=== PATIENT | female | born 1995 | race Caucasian/White ===

== ENCOUNTER 2017-01-28 05:15 | Emergency (ER) | payer OTHER ==
[~2017-01-28] VITALS: Ht 177.8 cm; Wt 143.3 kg
[2017-01-28 05:21] VITALS: BP 119/64
--- NOTE | 2017-01-28 05:24 | ED.ADGEN ---
Adult General Chief Complaint Chief Complaint " I was at home.. and woke up... a bug crawled into my right ear.. I can feel him crawling..." HPI HPI Patient is a 21 year old female who presents with above hx and complaint s of bug in right ear. Patient does appear to have a small cockroach in right ear. Ear irrigated with Sensorcaine and lidocaine. Was able to manually remove insect with a forceps . Pt. tolerated procedure well. Pt. normally healthy. No other complaint.s Review of Systems Review of Systems Constitutional: Denies fever or chills [] Eyes: Denies change in visual acuity, redness, or eye pain [] HENT: Denies nasal congestion or sore throat [] Complaints bug in ear. Respiratory: Denies cough or shortness of breath [] Cardiovascular: No additional information not addressed in HPI [] GI: Denies abdominal pain, nausea, vomiting, bloody stools or diarrhea [] : Denies dysuria or hematuria [] Musculoskeletal: Denies back pain or joint pain [] Integument: Denies rash or skin lesions [] Neurologic: Denies headache, focal weakness or sensory changes [] Endocrine: Denies polyuria or polydipsia [] Family History Family History Non-contributory Current Medications Current Medications See Nursing for home meds. Allergies Allergies NKDA Physical Exam Physical Exam Constitutional: Well developed, well nourished, no acute distress, non-toxic appearance. [] HENT: Normocephalic, atraumatic, bilateral external ears normal, oropharynx moist, no oral exudates, nose normal. [] Small cockroach in Rt.ear. Eyes: PERRLA, EOMI, conjunctiva normal, no discharge. [] Neck: Normal range of motion, no tenderness, supple, no stridor. [] Cardiovascular:Heart rate regular rhythm, no murmur [] Lungs & Thorax: Bilateral breath sounds clear to auscultation [] Abdomen: Bowel sounds normal, soft, no tenderness, no masses, no pulsatile masses. [] Obese. Skin: Warm, dry, no erythema, no rash. [] Back: No tenderness, no CVA tenderness. [] Extremities: No tenderness, no cyanosis, no clubbing, ROM intact, no edema. [] Neurologic: Alert and oriented X 3, normal motor function, normal sensory function, no focal deficits noted. [] Psychologic: Affect normal, judgement normal, mood normal. [] Current Patient Data Vital Signs Vital Signs Date Time Temp Pulse Resp B/P Pulse Ox O2 Delivery O2 Flow Rate FiO2 01/28/17 05:21 97.8 EKG EKG [] Radiology/Procedures Radiology/Procedures [] Course & Med Decision Making Course & Med Decision Making Pertinent Labs and Imaging studies reviewed. (See chart for details). Procedure note: - See HPI Follow up with primary. Return if any concerns. Pr [] Final Impression Final Impression 1. Cockroach Rt. Ear[] Problems: Dragon Disclaimer Dragon Disclaimer This electronic medical record was generated, in whole or in part, using a voice recognition dictation system. NICKOLAS ALVARES MD Jan 28, 2017 05:23
== END 2017-01-28 05:28 | disposition home or self-care (01) ==
LOC: ER 05:15
DX: T16.1XXA Foreign body in right ear, initial encounter (principal); X58.XXXA Exposure to other specified factors, initial encounter; Y93.89 Activity, other specified; Y99.8 Other external cause status; Y92.89 Other specified places as the place of occurrence of the external cause
CPT/HCPCS: 69200; 99284-25

== ENCOUNTER → 2019-04-18 | Outpatient (CLI) | payer OTHER ==
--- NOTE | 2019-04-18 15:31 | RAD ---
EXAM: 1. Chest 2 views. 2. Lumbar spine 3 views. HISTORY: Cough. Low back pain. COMPARISON: None. FINDINGS: Frontal and lateral views of the chest are obtained. There are no confluent infiltrates. There is no pneumothorax or pleural effusion. The heart is not enlarged. The alignment of the lumbar spine is normal. Vertebral body and intervertebral disc heights are maintained, and no fractures are identified. IMPRESSION: 1. No confluent infiltrates. 2. No lumbar fracture or malalignment. Electronically signed by: Can Adam MD (04/18/2019 3:28 PM) [facility]
== END | disposition home or self-care (01) ==
LOC: PMG 15:04
PROVIDERS: ATTEND Registered Nurse
DX: M54.5 Low back pain (principal); R07.9 Chest pain, unspecified; R05 Cough
CPT/HCPCS: 71046; 72100

== ENCOUNTER → 2019-07-23 | Outpatient (CLI) | payer OTHER ==
--- NOTE | 2019-07-23 15:24 | RAD ---
PROCEDURE: CHEST PA LATERAL CLINICAL INDICATION: TB screening for work. No symptoms. COMPARISON: None FINDINGS: No pneumothorax identified. Cardiac and mediastinal contours unremarkable. No pulmonary consolidation or acute airspace disease. No acute osseous abnormalities identified. IMPRESSION: No pulmonary consolidation or acute airspace disease. Electronically signed by: Volodymyr Gomez DO (07/23/2019 3:21 PM) [id number]
== END | disposition home or self-care (01) ==
LOC: PMG 13:08
PROVIDERS: ATTEND Registered Nurse
DX: Z11.1 Encounter for screening for respiratory tuberculosis (principal)
CPT/HCPCS: 71046

== ENCOUNTER → 2019-08-25 | Outpatient (CLI) | payer OTHER ==
--- NOTE | 2019-08-25 17:51 | RAD ---
ANKLE LEFT 3V DATE: 08/25/2019 12:00 AM INDICATION: Ankle pain COMPARISON: None. FINDINGS: Bones: There is no evidence of acute fracture or dislocation. Well-corticated ossific density along the inferior aspect of the lateral malleolus, likely due to remote trauma. Joints: The ankle mortise is congruent. No widening of the distal tibiofibular syndesmosis. Miscellaneous: None. IMPRESSION: No evidence of acute fracture. Electronically signed by: Charli Mejia MD (08/25/2019 5:48 PM) [id number]
== END | disposition home or self-care (01) ==
LOC: PMG 13:36
PROVIDERS: ATTEND Registered Nurse
DX: M25.572 Pain in left ankle and joints of left foot (principal)
CPT/HCPCS: 73610